=== PATIENT | male | born 1955 | race Caucasian/White ===

== ENCOUNTER → 2017-03-04 | Outpatient (CLI) | payer OTHER ==
--- NOTE | 2017-03-05 07:49 | MAMMOGRAPHY REPORT ---
MALE BILATERAL DIGITAL DIAGNOSTIC MAMMOGRAM WITH CAD AND TARGETED RIGHT ULTRASOUND: 03/04/2017 CLINICAL HISTORY: 61-year-old male presents with a lump in the right breast that he has noticed for a pproximately 2 months. No pain, skin erythema or thickening. No nipple discharge. No family histor y of breast cancer. TECHNIQUE: Bilateral CC and MLO views of the breasts were obtained. Current study was also evaluated with a Computer Aided Detection (CAD) system. COMPARISON: No prior exams were available for comparison. BREAST COMPOSITION: The breast parenchyma is nearly entirely fat. FINDINGS: There is mild gynecomastia bilaterally. A triangle skin palpable marker overlies the 8:00 to 9:00 posterior right breast, denoting the palpable lump pointed out by the patient. In the area of palpable concern, there is a lobulated dense mass measuring 16 x 16 x 16 mm, some of the borders a re indistinct others partially circumscribed. No associated calcification or architectural distortio n. This is indeterminate and further evaluation with ultrasound was performed. Targeted ultrasound was performed in the area of palpable lump pointed out by the patient (8:00 right breast, 4 cm from the nipple). On palpation, there is a firm 2 cm mass, with limited mobility. On ultrasound, there is an angular hypoechoic solid mass measuring 17.9 x 9.4 x 15.5 mm. This correlate s as palpated and with the mammographic finding. Given the solid nature it is indeterminate, warrant ing definitive characterization with an ultrasound-guided core needle biopsy. No overlying skin thic kening is appreciated. IMPRESSION: ACR BI-RADS CATEGORY 4: SUSPICIOUS, TARGETED ULTRASOUND ACR BI-RADS CATEGORY 4: SUSPICIO US The palpable mass in the 8:00 right breast correlates with an indeterminate solid angular hypoechoic 17.9 mm mass on ultrasound, and is also seen mammographically. This is indeterminate and further srikanth racterization with an ultrasound-guided core needle biopsy in the right breast is recommended. These results and recommendations were discussed with the patient at the time of the exam. He tentat ively scheduled the biopsy prior to leaving our department. Approximately 10% of breast cancers are not detected with mammography. A negative mammographic report should not delay biopsy if a clinically suggestive mass is present. Berta Mejias M.D. ay/:03/04/2017 10:39:35 Director Social Service: Jennifer VAUGHN(Jesica)(M), [facility] letter sent: Abnormal 4/5 BI-RADS Code: ACR BI-RADS Category 4: Suspicious Ultrasound BI-RADS: ACR BI-RADS Category 4: Suspici ous
== END | disposition home or self-care (01) ==
LOC: C.MAMM 09:59
PROVIDERS: ATTEND Nurse Practitioner Family
DX: R92.8 Other abnormal and inconclusive findings on diagnostic imaging of breast (principal); N63.10 Unspecified lump in the right breast, unspecified quadrant

== ENCOUNTER → 2017-03-06 | Outpatient (CLI) | payer OTHER ==
--- NOTE | 2017-03-06 16:03 | MAMMOGRAPHY REPORT ---
ULTRASOUND OF RIGHT BREAST: 03/06/2017 CLINICAL HISTORY: The patient presents for biopsy of the right 8:00 breast mass. COMPARISON: Comparison is made to exams dated: 03/04/2017 ultrasound and 03/04/2017 mammogram - [facility]. TECHNIQUE: Real-time targeted ultrasound of the right breast was performed. FINDINGS: The procedure and risks of ultrasound guided biopsy of the right 8:00 breast mass were rev iewed with the patient, and written and verbal consent was obtained. The patient was positioned for the biopsy. When assessing the lump on today's exam, a black punctum was seen on the skin at the sit e of the lump. A small amount of pressure was placed on the lump, and thick yellowwhite discharge w as elicited from the lump. Some of the discharge was placed on slides and some was placed in CytoLyt , and sent to cytology for analysis. Given the black punctum on the skin and given the discharge lizeth t was elicited, the mass likely represents a sebaceous/epidermal inclusion cyst. Given that this lik dottie represents a sebaceous/epidermal inclusion cyst, biopsy was not performed given the risk of causi ng significant inflammation. Repeat targeted ultrasound was performed of the lump, which shows a hypoechoic 1.3 x 0.8 x 1.6 cm sub dermal mass in the right 8 o'clock breast. At least one thin hypoechoic tract is seen extending to t he skin. IMPRESSION: On today's exam, a black punctum was seen on the skin at the site of the lump, and thick yellowwhite discharge was elicited from the lump. A sample of the discharge was sent to cytology for analysis. Given that discharge was elicited from the lump, the mass likely represents a sebaceous/epidermal in clusion cyst. Therefore, biopsy was not performed. The patient will receive pathology results from his referring provider. Vaishnavi Bautista M.D. ah/:03/06/2017 10:03:00 Merchandise Associate: Oneyda JEFFRIES)(M), [facility] BI-RADS Code: n/a
== END | disposition home or self-care (01) ==
LOC: C.MAMM 09:19
PROVIDERS: ATTEND Nurse Practitioner Family
DX: R92.8 Other abnormal and inconclusive findings on diagnostic imaging of breast (principal); N63.10 Unspecified lump in the right breast, unspecified quadrant

== ENCOUNTER → 2017-05-23 | Outpatient (CLI) | payer OTHER ==
[~2017-05-23] MED LIST: OPTIRAY 320 IV PRN
--- NOTE | 2017-05-23 17:31 | DIAGNOSTIC IMAGING REPORT ---
CT ABD/PELVIS IV AND ORAL CONT CLINICAL HISTORY: ELEVATED PANCREATIC ENZYME, EVAL FOR PANCREATITIS COMPARISON STUDY: None. TECHNIQUE: Following the IV administration of 116 mL of Optiray-320, CT scan of the abdomen and pelvis was performed from the lung bases to the proximal femurs. Images are reviewed in the axial, sagittal, and coronal planes. IV contrast was administered without complication. A dose lowering technique was utilized adhering to the principles of ALARA. CT DOSE: 456.79 mGy.cm FINDINGS: Lower chest: There are mild basilar atelectatic changes Liver: There is a nonspecific 21 mm hypodensity within the right hepatic lobe. Multiple additional hepatic hypodensities are visualized. These additional hypodensities however approach water attenuation likely represent cysts. Gallbladder: Unremarkable. Spleen: Normal in size and attenuation. Pancreas: There is a 15 mm cystic lesion within the pancreatic tail. There is a 22 mm hypodensity within the pancreatic head/uncinate process. There is no pancreatic ductal dilatation. There is no intrahepatic biliary ductal dilatation. The pancreatic head lesion could either represent focal pancreatitis or could be neoplastic. An MRI should be considered for further evaluation of the pancreatic lesions as well as the right lobe hepatic lesion. Adrenal glands: Unremarkable. Kidneys: There is symmetric renal cortical enhancement. The kidneys are normal in size without hydronephrosis. Bowel: There are no transition zones indicate bowel obstruction. There is colonic diverticulosis. There are no acute peridiverticular inflammatory changes. The appendix appears normal as visualized. Peritoneum: There is no intraperitoneal free air or abdominal ascites. Vasculature: The abdominal aorta is normal in course and caliber. Adenopathy: None. Pelvic viscera: There is mild prostate enlargement Skeletal structures: No destructive osseous lesions are seen. IMPRESSION: 1. Multiple hepatic hypodensities, many of which likely represent cysts. There is however an indeterminate 21 mm lesion within the right hepatic lobe 2. 15 mm cystic lesion within the pancreatic tail. Indeterminate 22 mm hypodensity with the pancreatic head/uncinate process. 3. An MRI of the liver and pancreas is recommended in follow-up for further evaluation 4. No evidence of bowel obstruction. No evidence of free air 5. Diverticulosis. No evidence of acute diverticulitis. Electronically signed by: Sanjeev Newman M.D. 05/23/2017 5:30 PM Dictated Date/Time: 05/23/2017 5:23 PM
== END | disposition home or self-care (01) ==
LOC: C.CTS 15:06
PROVIDERS: ATTEND Nurse Practitioner Family
DX: R74.8 Abnormal levels of other serum enzymes (principal); K76.9 Liver disease, unspecified; K57.90 Diverticulosis of intestine, part unspecified, without perforation or abscess without bleeding

== ENCOUNTER → 2017-05-27 | Outpatient (CLI) | payer OTHER ==
[~2017-05-27] MED LIST changes: +GADAVIST IV PRN; -OPTIRAY 320 IV PRN
--- NOTE | 2017-05-28 08:47 | DIAGNOSTIC IMAGING REPORT ---
ABDOMEN COMBO HISTORY: 61 years-old Male LIVER LESION,PANCREATIC LESION follow-up study in a patient with cystic lesions of the pancreas and liver. Irregular bowel movements with abdominal bloating. COMPARISON: CT abdomen and pelvis 05/23/2017 TECHNIQUE: Multiplanar multisequence MRI of the abdomen was obtained both with and without the use of 7.7 mL Gadavist FINDINGS: The lung bases appear clear. Imaged heart is also unremarkable. The spleen and adrenal glands appear unremarkable. 5 mm T2 hyperintense ovoid lesion of the inferior pole right kidney is compatible with benign cyst. Mild dextroscoliosis of the mid lumbar spine. No bulky adenopathy or ascites identified. Gallbladder and common bile duct appear to be within normal limits. There are multiple (at least 9) circumscribed T2 hyperintense lesions noted throughout the liver, several of which are too small to characterize, however largest measure up to 1.3 cm within the left hepatic lobe without enhancement compatible with hepatic cyst. Additionally, there is a lobulated 1.9 x 1.4 cm T2 hyperintense and T1 hypointense lesion within the posterior right hepatic lobe nicely seen on image 16 series 6 within segment . This lesion demonstrates mild peripheral nodular discontinuous enhancement with some centripetal filling. 1.3 cm lobular T2 hyperintense lesion within the subcapsular segment more medially, image 20 of series 6 also demonstrates peripheral nodular discontinuous enhancement. No significant drop of signal on the out of phase images to suggest fatty infiltration of the liver. There is an ovoid T2 hyperintense T1 hypointense circumscribed lesion without enhancement involving the pancreatic tail measuring 1.6 x 1.2 cm nicely seen on image 22 series 6. Additionally, there is an ill-defined T1 hypointense lesion of the uncinate process demonstrating intermediate signal on the T2 series measuring up to 2.0 x 2.1 x 1.6 cm nicely seen on image 62 series 1303. This lesion demonstrates minimal peripheral and internal septal enhancement, notably on the portal venous phase without significant arterial enhancement. No associated pancreatic ductal dilation or definite invasion into adjacent structures. No vascular encasement identified. The bones appear unremarkable. No aortic aneurysm or adenopathy. IMPRESSION: 1. 2.1 cm lesion of the uncinate process pancreas demonstrating imaging characteristics very suspicious for adenocarcinoma or less likely neuroendocrine tumor. No pancreatic ductal dilation, vascular encasement or invasion into adjacent structures. Further evaluation with endoscopy and tissue sampling recommended. 2. 1.6 cm circumscribed cystic lesion of the pancreatic tail suggests sidebranch IPMN. 3. Multiple hepatic cysts are noted in addition to two lobulated T2 hyperintense lesions of the posterior right hepatic lobe measuring up to 1.9 cm demonstrating imaging characteristics most suggestive of hepatic hemangiomas. The above report was generated using voice recognition software. It may contain grammatical, syntax or spelling errors. Electronically signed by: Regulo Dai M.D. 05/28/2017 8:59 AM Dictated Date/Time: 05/28/2017 8:02 AM
== END | disposition home or self-care (01) ==
LOC: C.MRI 19:58
PROVIDERS: ATTEND Nurse Practitioner Family
DX: K76.9 Liver disease, unspecified (principal); K86.9 Disease of pancreas, unspecified

== ENCOUNTER → 2017-05-28 | Outpatient (CLI) | payer OTHER ==
[2017-05-28 17:09] LABS: ALBUMIN 4.1 gm/dl (3.4-5.0); ALT/SGPT 17 U/L (12-78); BLOOD UREA NITROGEN 12 mg/dl (7-18); CALCIUM 9.3 mg/dl (8.5-10.1); CARBON DIOXIDE 27 mmol/L (21-32); CREATININE 0.97 mg/dl (0.60-1.40); GLUCOSE 104 mg/dl (70-99); POTASSIUM 4.1 mmol/L (3.5-5.1); SODIUM 138 mmol/L (136-145)
[2017-05-28 17:16] LABS: ALKALINE PHOSPHATASE 89 U/L (45-117); AST/SGOT 15 U/L (15-37); LIPASE 3777 U/L (73-393); TOTAL PROTEIN 7.9 gm/dl (6.4-8.2)
== END | disposition home or self-care (01) ==
LOC: C.LABBC 13:45
PROVIDERS: ATTEND Nurse Practitioner Family
DX: R74.8 Abnormal levels of other serum enzymes (principal); R86.9 Unspecified abnormal finding in specimens from male genital organs; R76.9 Abnormal immunological finding in serum, unspecified

== ENCOUNTER → 2017-06-06 | Outpatient (CLI) | payer OTHER ==
[2017-06-06 17:18] LABS: LIPASE 1903 U/L (73-393)
== END | disposition home or self-care (01) ==
LOC: C.LABBC 14:18
PROVIDERS: ATTEND Physician Assistant
DX: K86.9 Disease of pancreas, unspecified (principal)

== ENCOUNTER 2019-07-06 20:46 | Inpatient (IN) ==
[2019-07-06] MEDS ORDERED: SODIUM CHLORIDE 0.9% 250 ML IV PRN (20:56)
[2019-07-06 21:40] LABS: Hematocrit (blood only) 14.5 % (42-52); Hemoglobin 4.6 g/dL (14.0-18.0); Mean Corpuscular Hgb Conc 31.7 g/dL (32-36); Mean Corpuscular Volume 78.8 fL (80-100); Mean Platelet Volume 9.8 fL (7.4-10.4); Platelet Count 335 K/uL (130-400); RDW Coefficient of Variation 20.5 % (11.5-14.5); Red Blood Count 1.84 M/uL (4.7-6.1); White Blood Count 7.88 K/uL (4.8-10.8)
--- NOTE | 2019-07-06 21:46 | Emergency Department Note ---
Impression & Plan GI bleed, Anemia ED Provider Note NAME: MICKI MORRIS AGE: 63 SEX: M : 1955 ARRIVES VIA: Walk-In INFORMANT: Patient, ED PROVIDER(S): Ho Burt MD Chief Complaint: Fatigue, Dr. referred for lab results HPI: Patient does present with worsening fatigue and weakness. The patient does have a known history of pancreatic cancer. He does see a Dr. Fierro at [facility] in [place]. The patient did her last received chemo 2 weeks ago. The patient did have blood counts obtained today which showed a low hemoglobin. The patient has stated that he has had some darker stool and is currently on Eliquis for known history of blood clots. The patient states his appetite is been okay. No recent travel or sick contacts. The patient's fatigue is worsened over the last week. Rest does improve it somewhat and activity makes it worse. It has been persistent. ROS: See HPI for pertinent positives and negatives. A total of 10 systems were reviewed and otherwise negative. Past medical history: See below Surgical history: See below Social history: See below Physical Exam: GENERAL: Thin and pale in appearance. EYE EXAM: Normal conjunctiva. PERRL, no anisocoria and EOM's grossly intact w/o pain. NECK: Supple, no nuchal rigidity, no adenopathy, non-tender. No signs of meningismus. Chest: Port in right chest. LUNGS: Clear to auscultation. Normal chest wall mechanics. HEART: NSR, no MRG. ABDOMEN: Abdomen soft, non-tender, normo-active bowel sounds, no masses, no rebound or guarding. BACK: No CVA TTP. SKIN: No rashes and no bruising. UPPER EXTREMITIES: Upper extremities are grossly normal. LOWER EXTREMITIES: Grossly normal, no edema. NEURO EXAM: A&O x3, cranial nerves II-XII grossly intact, normal speech, moves all 4 extremities on command w/o issue. Differential diagnoses: Infection, dehydration, metabolic abnormality, hypo/hyperglycemia, electrolyte disturbance, anemia, hypoxia, cardiac sources, intracerebral event, toxicologic, neurologic, as well as other pathologies. Course: Patient was seen in eval at the bedside. A full history and physical exam was performed. Patient was consented for blood. Patient consented. I did speak with Dr. Babcock, [facility] Hospitalist. He will evaluate and treat the patient. EKG: None Imaging Studies: None Cardiac monitoring: An order was placed for continuous cardiac monitoring. The monitor shows a rate of 110 with sinus tachycardia rhythm. MDM: Patient was seen and evaluated the bedside. The patient did present with tari rn for weakness. The patient does have a low hemoglobin. The patient has related this to darker stools and currently is on Eliquis. The patient did have repeat blood work completed which shows a low white blood cell count. Given this concern the patient was consented for blood I did speak the on-call hospitalist agreed to further evaluate treat the patient. Patient was admitted to the medicine service. Rectal exam did show heme positive stool. I did call pharmacy in order to order a PPI bolus and drip. I have personally spent 45 minutes of critical care time in direct management of this patient. This includes bedside care, interpretation of diagnostic studies, and testing, discussion with consultants, patient, and family members, and other require inpatient management activities. This 45 minutes is in excess of all separately billable procedures. Past Med/Surg History Medical History Pancreatic cancer Social History Preferred Language: Romanian marital status: Feels Safe at Home: Yes Smoking Status: Never smoker Allergies Allergies Allergy/AdvReac Type Severity Reaction Status Date / Time No Known Allergies Allergy Mild Unverified 07/06/19 22:11 Home Meds Home Medications Medication Instructions Recorded Confirmed lorazepam [Ativan] 1 mg PO DAILY PRN 12/18/17 07/06/19 [id number] [Zenpep] 2 cap PO TIDM 07/22/18 07/06/19 pantoprazole [Protonix] 40 mg PO BID 07/22/18 07/06/19 apixaban [Eliquis] 5 mg PO BID 07/06/19 07/06/19 Results & Data (ED) Vital Signs Vital Signs - 24 hr 07/06/19 20:48 Temperature 36.9 C Temperature Source Oral Pulse Rate 118 H Respiratory Rate 16 Respiratory Depth Normal Blood Pressure 128/69 Blood Pressure Mean 88 Blood Pressure Position Sitting Pulse Oximetry 98 Oxygen Delivery Method Room Air Sepsis Recent Fever Within 48 Hours No Sepsis New/Unexplained Change in Mental Status No Sepsis Action Taken by Nursing No Action Required Home Medications Current Medication List: was personally reviewed by me Laboratory Data Attestation: I reviewed the patient's lab results. Result diagrams: 07/06/19 21:16 Lab Results 07/06/19 07/06/19 07/06/19 Range/Units 21:16 21:16 21:16 WBC 7.88 (4.8-10.8) K/uL RBC 1.84 L (4.7-6.1) M/uL Hgb 4.6 L* (14.0-18.0) g/dL Hct 14.5 L* (42-52) % MCV 78.8 L (80-100) fL MCH 25.0 (25-34) pg MCHC 31.7 L (32-36) g/dL RDW Std Deviation 57.0 H (36.4-46.3) fL RDW Coeff of Checo 20.5 H (11.5-14.5) % Plt Count 335 (130-400) K/uL MPV 9.8 (7.4-10.4) fL Immature Gran % (Auto) 0.3 % Neut % (Auto) 80.8 % Lymph % (Auto) 9.4 % [place] % (Auto) 8.9 % Eos % (Auto) 0.5 % Baso % (Auto) 0.1 % Immature Gran # (Auto) 0.02 (0.00-0.02) K/uL Neut # (Auto) 6.37 (1.4-6.5) K/uL Lymph # (Auto) 0.74 L (1.2-3.4) K/uL [place] # (Auto) 0.70 H (0.11-0.59) K/uL Eos # (Auto) 0.04 (0-0.5) K/uL Baso # (Auto) 0.01 (0-0.2) K/uL Hypochromasia Present Anisocytosis Present PT 13.2 H (9.0-12.0) Seconds INR 1.3 H (0.9-1.1) APTT 23.6 (21.0-31.0) Seconds PTT Ratio 0.8 Blood Type A Positive Antibody Screen NEGATIVE Crossmatch See Detail Blood Pressure Blood Pressure Findings: Elevated blood pressure Blood Pressure Disposition: further management by hospitalist Discharge Plan Visit Data Chief Complaint: Referred by Doctor Stated Complaint: TESTING ED Provider: Ho Burt Discharge Problem: GI bleed, Anemia Forms Stand Alone Forms: [facility] [employer] Prescriptions Prescriptions: No Action lorazepam [Ativan] 1 mg tablet 1 mg PO DAILY PRN (Reason: Nausea) RF: 0 pantoprazole [Protonix] 40 mg Tablet,Delayed Release (Dr/Ec) 40 mg PO BID RF: 0 Zenpep 25,000-79,000- 105,000 unit capsule,delayed release(DR/EC) 2 cap PO TIDM RF: 0 Eliquis 5 mg tablet 5 mg PO BID RF: 0
[2019-07-06 21:51] LABS: INR 1.3 (0.9-1.1); Partial Thromboplastin Ratio 0.8; Partial Thromboplastin Time 23.6 Seconds (21.0-31.0); Prothrombin Time 13.2 Seconds (9.0-12.0)
[2019-07-06 22:07] LABS: Anisocytosis Present; Basophils # (auto) 0.01 K/uL (0-0.2); Basophils % (auto) 0.1 %; Eosinophils # (auto) 0.04 K/uL (0-0.5); Eosinophils % (auto) 0.5 %; Hypochromasia Present; Immature Granulocytes # (auto) 0.02 K/uL (0.00-0.02); Immature Granulocytes % (auto) 0.3 %; Lymphocytes # (auto) 0.74 K/uL (1.2-3.4); Lymphocytes % (auto) 9.4 %; Monocytes % (auto) 8.9 %; Neutrophils # (auto) 6.37 K/uL (1.4-6.5); Neutrophils % (auto) 80.8 %
--- NOTE | 2019-07-06 22:48 | History & Physical Report ---
Date of Service July 06, 2019 Assessment & Plan (1) Anemia: Pt is a 63yo with a PMHx of pancreatic cancer s/p whipple in Jan 2018 and current chemotherapy last done 2 weeks ago, Hx of blood clots and insomnia/agitation who contacted his oncologist with complaints of fatigue, SOB and dizziness and was found to be anemic requiring transfusion. Anemia -Pt symptomatic with fatigue, SOB, dizziness for the last week -Hgb of 5.4 as outpatient, decreased further to 4.6 in the ED -will be given 1U of pRBCs in ED, another unit ordered for the floor -q8h H and H -CT abd/ pelvis pending to determine whether retroperitoneal bleed -FOBT pending as potential source of bleed -trops pending to determine any end organ ischemia -hold Eliquis (see below) -admit to med/surg with telemetry monitoring Hx of pancreatic cancer -Diagnosed in May 2017 -Had whipple done in Jan 2018, currently undergoing chemotherapy -Pt follows with oncologist from [facility] -continue home Zenpep 2 cap po TID Hx of blood clots -Pt states he had blood clot in his ?aorta and unnamed related artery -Was originally on Xarelto, but subsequently switched to Eliquis around Apr 2019 -As Eliquis likely cause of bleeding and subsequent anemia, HOLD. -continue SCDs for dvt prophylaxis while hospitalized Insomnia/Agitation -continue home ativan 1mg qhs PRN FEN/GI: Regular diet DVT prophylaxis: SCDs. Currently anemic and bleeding. CODE STATUS: Full Dispo: Med/Surg with tele History of Present Illness Primary Care Provider: Caelb Hinds Pt is a 63yo with a PMHx of pancreatic cancer s/p whipple in Jan 2018 and current chemotherapy last done 2 weeks ago, Hx of blood clots and insomnia/agitation who contacted his oncologist with complaints of fatigue, SOB and dizziness and was found to be anemic requiring transfusion. He states he was diagnosed with pancreatic cancer in May of 2017, had a whipple done in Jan 2018. Follows with his oncologist at [facility]. Has also been on Xarelto in the past and currently Eliquis 5mg BID for a Hx of blood clots. States he started having the symptoms of SOB, fatigue and dizziness about a week ago and thought it was related to a COVID infection. However he denies any fevers, chills, night sweats or cough, recent travel or known COVD contacts. He eventually contacted his oncologist who suggested he get blood work done. His Hgb came back at 5 and he subsequently presented to the ED. PMHx: Pancreatic cancer, Hx of blood clots, insomnia/agitation PSH: whipple, hemmorhoidectomy Allergies: NKDA Meds: As below SH: Never smoker, no alcohol use, no medical marijuana or recreational drug use. Lives at home with his , ambulatory at baseline. ED course: 1U pRBCs transfused, IV protonix, fluids Allergies Allergy/AdvReac Type Severity Reaction Status Date / Time No Known Allergies Allergy Mild Unverified 07/06/19 22:11 Home Medications Home Medications Medication Instructions Recorded Confirmed Type lorazepam [Ativan] 1 mg PO DAILY PRN 12/18/17 07/06/19 History Zenpep 2 cap PO TIDM 07/22/18 07/06/19 History pantoprazole [Protonix] 40 mg PO BID 07/22/18 07/06/19 History famotidine 20 mg PO BID #28 tab 07/07/19 Rx Past Med/Surg History Medical History Pancreatic cancer Social History Preferred Language: Dominican Communication Ability: Effective Product Sales Engineer Required: No Beliefs That Will Affect Care: None marital status: Current Living Situation: Spouse Other Information That Helps Us Care for You: No Feels Safe at Home: Yes Safety Concerns: Feels Safe At This Time Smoking Status: Never smoker Hx Alcohol Use: No Hx Substance Use: No Review of Systems Constitutional: + fatigue, + weakness and + insomnia; no fever, no chills and no sweats Eyes: no worsening vision Ear, Nose, Mouth, Throat: + dizziness; no nasal congestion and no sore throat Respiratory: + dyspnea and + dyspnea on exertion; no cough and no chest congestion Cardiovascular: + dyspnea, + dyspnea on exertion and + lightheadedness; no chest pain, no palpitations and no syncope Gastrointestinal: + blood in stools and + melena; no abdominal pain, no nausea, no vomiting, no constipation and no diarrhea/loose stools Genitourinary: no dysuria and no hematuria Musculoskeletal: no body aches Integumentary: no rash Neurologic: + dizziness; no tingling, no numbness and no headache(s) Hematologic / Lymphatic: no easy bruising and no night sweats Physical Exam Physical Exam: General: Alert, orientedx3. Sitting up in bed, thin gentleman Skin: No noted rashes or bruises Psych: Appropriate mood and affect Neuro: No gross deficits HEENT: NC/AT Chest: Nontender to palpation. CV: RRR, Normal s1, s2. Blowing murmur appreciated Resp: Breath sounds clear but decreased bilaterally, no increased effort of breathing. No crackles/rhonchi/rales. Abdomen: Soft, nontender. No guarding. Extremities: No edema in lower extremities bilaterally. Results & Data Results & Data ([facility]) Vital Signs (Past 12 Hours) Vital Signs Temp Pulse Resp BP Pulse Ox 07/06/19 20:48 36.9 C 118 H 16 128/69 98 Code Status & VTE Plan VTE Prophylaxis Plan VTE Prophylaxis will be ordered: Yes Supervising Physician Co-Signing Physician Notes Attending addendum: I have physically seen this patient, have supervised the medical residents activities, and agree with the H&P unless as otherwise noted. Assessment and Plan: Symptomatic anemia- To receive 2 units PRBCs, and then repeat H&H. H&H every 6 hours x3. Hemoccults before follow serially. Check CT abdomen pelvis without contrast to assess for retroperitoneal bleed. Hold Eliquis overnight, to discuss with oncology from [facility] regarding history of thromboses and resumption of Eliquis at earliest convenience. Remainder orders and notations as noted. Resident Activity Tracking Resident Involvement: Resident Care Provided Care Provided: Adult Hospital Medicine
[2019-07-06] MEDS ORDERED: PANTOprazole 80 MG in DEXTROSE 5% 100 ML IV ONE (23:00)
[2019-07-06] MEDS ORDERED: PANTOprazole 40 MG in DEXTROSE 5% 100 ML IV SCH (23:15)
[2019-07-07] MEDS ORDERED: SODIUM CHLORIDE 0.9% 250 ML IV PRN ×3 (00:57→06:37)
[2019-07-07] MEDS ORDERED: LORazepam 1 MG TAB PO PRN (01:00)
[2019-07-07] MEDS: HEPARIN 100 UNIT/ML 5ML FLUSH FLUSH PRN ×2 (06:01→10:28)
[2019-07-07 06:33] LABS: Hematocrit (blood only) 21.3 % (42-52); Hemoglobin 6.9 g/dL (14.0-18.0); Mean Corpuscular Hemoglobin 25.9 pg (25-34); Mean Corpuscular Hgb Conc 32.4 g/dL (32-36); Mean Corpuscular Volume 80.1 fL (80-100); Mean Platelet Volume 10.1 fL (7.4-10.4); Nucleated RBC # (auto) 0.02 K/uL (0-0); Nucleated RBC % (auto) 0.1 %; Platelet Count 377 K/uL (130-400); RDW Coefficient of Variation 18.8 % (11.5-14.5); RDW Standard Deviation 54.3 fL (36.4-46.3); Red Blood Count 2.66 M/uL (4.7-6.1); White Blood Count 11.44 K/uL (4.8-10.8)
[2019-07-07 06:35] LABS: Basophils # (auto) 0.02 K/uL (0-0.2); Basophils % (auto) 0.2 %; Echinocytes 1+; Eosinophils # (auto) 0.04 K/uL (0-0.5); Eosinophils % (auto) 0.3 %; Immature Granulocytes # (auto) 0.06 K/uL (0.00-0.02); Immature Granulocytes % (auto) 0.5 %; Lymphocytes # (auto) 1.13 K/uL (1.2-3.4); Lymphocytes % (auto) 9.9 %; Monocytes # (auto) 1.02 K/uL (0.11-0.59); Monocytes % (auto) 8.9 %; Neutrophils # (auto) 9.17 K/uL (1.4-6.5); Neutrophils % (auto) 80.2 %; Ovalocytes 1+
--- NOTE | 2019-07-07 06:40 | Communication Note ---
Date of Service: July 07, 2019 Was notified of critical Hgb of 6.9 with this morning's labs. Pt transfused 1 more unit of pRBCs. Resident Activity Tracking Resident Involvement: Accounting Generalist Coverage Note Care Provided: Adult Hospital Medicine
[2019-07-07 06:51] LABS: Albumin Level 2.1 gm/dl (3.4-5.0); Calcium 7.7 mg/dl (8.5-10.1); Creatinine Clr Calc Pharmacy 73.2 ml/min; Est GFR (African American) 98.3; Est GFR (Non-African American) 84.9; Potassium 4.3 mmol/L (3.5-5.1)
[2019-07-07 06:52] LABS: Albumin Globulin Ratio 0.5 (0.9-2); Bilirubin,Total 1.2 mg/dl (0.2-1); Globulin 4.3 gm/dl (2.5-4.0); Total Protein 6.4 gm/dl (6.4-8.2)
--- NOTE | 2019-07-07 08:13 | CT Scan Report ---
CT SCAN OF THE ABDOMEN AND PELVIS WITHOUT IV CONTRAST CLINICAL HISTORY: Anemia. Pancreatic cancer. COMPARISON STUDY: Abdominal CT dated 05/23/2017. TECHNIQUE: CT scan of the abdomen and pelvis is performed from the lung bases to the proximal femora. Images are reviewed in the axial, sagittal, and coronal planes. IV contrast was not administered for this examination as per the referring clinician. Note that the examination was performed in signific antly suboptimal fashion without oral and IV contrast. A dose lowering technique was utilized adherin g to the principles of ALARA. CT DOSE: 287.21 mGy.cm FINDINGS: Lung bases: The heart is normal in size and without pericardial effusion. There is mixed attenuation of the cardiac blood pool as compared to the myocardium suggesting anemia. There is trace right pleur al effusion. Scarring/atelectasis is noted at both lung bases. No airspace consolidation is seen typi lanie for pneumonia. Liver: The unenhanced liver is normal in size and contour. The liver is heterogeneous and attenuation . The intrahepatic bile ducts are not well evaluated. Periportal edema is suggested. Small hepatic cy sts measure up to 1.3 cm. Additional subcentimeter cortical hypodensities may also represent cysts bu t are too small for definitive characterization. Assessment for hepatic lesions is significantly subo ptimal without IV contrast. Gallbladder: The gallbladder is presumed surgically absent. The gallbladder fossa is not well assesse d due to ascites and lack of IV contrast. Spleen: Normal in size and attenuation. Pancreas: The pancreatic head is surgically absent consistent with a history of Whipple procedure. Th e pancreatic tail is atrophic with numerous parenchymal calcifications. The duct is normal in caliber. Adrenal glands: Unremarkable. Kidneys: The unenhanced kidneys are normal in size and without hydronephrosis. There are no renal lanie culi identified. There is no evidence of contour deforming renal mass lesion. Abdominal vasculature: The abdominal aorta is normal in course and caliber noting moderate atheroscle rotic calcification. Bowel: There has been gastroduodenal resection with gastrojejunostomy consistent with a history of Wh ipple procedure. No bowel obstruction is seen. There is colonic fecal retention. The appendix is nor mal as imaged. Peritoneum/retroperitoneum: There is a small volume of abdominopelvic ascites. No intraperitoneal ronda e air is seen. There is no evidence of intraperitoneal or retroperitoneal hemorrhage. Mesenteric nicolás a is noted. Lymphadenopathy: None. Pelvic viscera: The prostate gland is enlarged and heterogeneous. The bladder is decompressed. The bl adder wall is thickened and trabeculated indicating chronic outlet obstruction Skeletal structures: The skeletal structures are osteopenic. There is moderate lumbosacral spondylosi s. No lytic or blastic lesions are seen. IMPRESSION: 1. Suboptimal examination without oral and IV contrast. 2. There is no evidence of intraperitoneal or retroperitoneal hemorrhage. 3. Postoperative change is consistent with a history of Whipple procedure. 4. There is a small volume of abdominopelvic ascites. 5. Additional findings as above. ACT 112: Negative or not required by law. Electronically signed by: Mikhail Menendez M.D. 07/07/2019 8:11 AM
[2019-07-07] MEDS: PANCREAZE (LIPASE 16,800U) CAP PO SCH ×2 (08:32→12:14)
[2019-07-07] MEDS ORDERED: PANTOprazole 40 MG in SYRINGE 0 ML IV SCH (09:00)
[2019-07-07 12:31] LABS: Hematocrit (blood only) 21.5 % (42-52); Hemoglobin 7.1 g/dL (14.0-18.0)
--- NOTE | 2019-07-07 16:44 | Discharge Summary ---
Date of Service July 07, 2019 Admission HPI Per Admitting Provider Pt is a 63yo with a PMHx of pancreatic cancer s/p whipple in Jan 2018 and current chemotherapy last done 2 weeks ago, Hx of blood clots and insomnia/agitation who contacted his oncologist with complaints of fatigue, SOB and dizziness and was found to be anemic requiring transfusion. He states he was diagnosed with pancreatic cancer in May of 2017, had a whipple done in Jan 2018. Follows with his oncologist at [facility]. Has also been on Xarelto in the past and currently Eliquis 5mg BID for a Hx of blood clots. States he started having the symptoms of SOB, fatigue and dizziness about a week ago and thought it was related to a COVID infection. However he denies any fevers, chills, night sweats or cough, recent travel or known COVD contacts. He eventually contacted his oncologist who suggested he get blood work done. His Hgb came back at 5 and he subsequently presented to the ED. PMHx: Pancreatic cancer, Hx of blood clots, insomnia/agitation PSH: whipple, hemmorhoidectomy Allergies: NKDA Meds: As below SH: Never smoker, no alcohol use, no medical marijuana or recreational drug use. Lives at home with his , ambulatory at baseline. ED course: 1U pRBCs transfused, IV protonix, fluids Principal Diagnosis anemia, presumed GI bleeding Discharge Exam gen [facility] at [facility] breathing unlabored no accessory muscles good effort skin no rashes no pallor or icterus neuro no focal deficits Discharge Data Allergies Allergy/AdvReac Type Severity Reaction Status Date / Time No Known Allergies Allergy Mild Unverified 07/06/19 22:11 Consultations 07/06/19 21:55 ED Decision to Admit Stat Ordered Studies 07/07/19 00:26 CT abd pelvis wo con Urgent Hospital Course (1) Anemia: presented weak - found to be profoundly anemic w Hgb bottoming at 4.6. Stools heme (+) but no overt bleeding. hemodynamically stable throughout. suspected slow gi bleeding accentuated by eliquis transfused 3 units for subacute blood loss anemia - Hgb up to 7.1 and pt feeling better discussed options of inpt GI w/u (w presumed EGD looking for UGI ulcer/anastomot ic ulcer) vs empiric treatment and then f/u w GI in [facility] - he much prefers empiric treatment and f/u w GI in [facility] - understanding the risks and complexities of this playing out in current climate with [id number]. hold maddisonquis for now - he notes he was talking w his heme/onc who suggested the same - in discussions w pt it sounds that clots were incidentally found on scanning, never symptomatic clotting. he will discuss further w oncology about ?resume vs ongoing hold - but for now w subacute blood loss anemia it makes the most sense to at least hold for now, follow Hgb, then possibly resume in 1-2wks (preferably after EGD at least, but if resuming empirically would follow Hgb even more closely after) stable for home increase acid suppression for 2wks w H2 on top of current PPI. Total Time Total Time Spent Total Time Spent (In Minutes): >30 Discharge Plan Discharge Items Patient Disposition: Home - Self-Care Reason For Visit: ANEMIA Discharge Diagnosis: anemia Activity: Resume your previous activity Non-emergency contact: Primary Care Provider, Surgeon and [employer] Call non-emergency contact if: you have any medication questions and your symptoms worsen Follow-up/Referrals: Caleb Hinds [Primary Care Provider] - Diet: Regular Addtl Attending Provider Instructions: anemia -as we discussed, when you arrived your hemoglobin was extremely low at 4.6 (normal is about 12-16) - and being so low on blood counts is an easy explanation for what you were feeling -fortunately getting blood in you has helped with your symptoms tremendously - and now your counts are up to 7.1 (most people with a normal cardiopulmonary system - like you - don't really feel much symptoms until they get into the 6's or lower - so this fits well) -given how low your counts were, but how normal your pulse and blood pressure were, this had to be a slow loss of blood to give your body time to compensate - likely at least over the last month, if not longer -since the CT did not show any collections of blood, and your stool tested positive for blood, most likely there was a slow ooze of blood into your GI tract -- with a connection where they brought things together from the whipple procedure being a common area that could get involved. as we discussed, blood thinners don't generally cause bleeding in a "vacuum" as much as they "turn up the faucet" on bleeding that is already occurring - ie without the eliquis there still may have been a little ulcer causing bleeding, but it could have been so slow that you would not have noticed or it might never have amounted to anything that was too much for your body to keep up with. being on the eliquis, then you had bleeding increased some, leading to the current situation -it is safe to get home - we'd recommend having blood counts (Hemoglobin) checked about once a week, or as needed if you feel symptoms like you felt, for the foreseeable future -for now, hold off on the eliquis (and likewise, obviously avoid any aspirin, ibuprofen, other blood thinners or anti-inflammatories) but continue to follow with your oncologist in this respect - frequently when the source of bleeding has stopped and healed over, it can be safe to cautiously resume a blood thinner (although also as we discussed, since the clots were found incidentally rather than because of causing symptoms, it might be just as reasonable to indefinitely hold off on blood thinners) - continue to discuss this with your oncologist -for now, take pepcid (famotidine) 20mg twice a day in addition to your protonix - for about the next 14 days -we'd want your manager of case to look over your situation - commonly people will at least have an upper endoscopy to evaluate for little ulcers (in your situation the purpose would be to ensure adequate healing and determine if it might be safe to resume a blood thinner if needed), and your manager of case can also give consideration to if a colonoscopy or small bowel study -pay attention to your symptoms - if you get recurrence of what you've been feeling, then it would be time to get blood counts checked again. likewise, pay attention to your stools - since blood acts as a laxative, if the bleeding were to ever increase, you would probably see it as dark, tarry stools or possibly even bright red blood. Pending Studies at Discharge: No Stand-Alone Forms: My [employer], Smoking Cessation Medications and DC Order Prescriptions: New famotidine 20 mg tablet 20 mg PO BID Qty: 28 RF: 0 Continued lorazepam [Ativan] 1 mg tablet 1 mg PO DAILY PRN (Reason: Nausea) RF: 0 pantoprazole [Protonix] 40 mg Tablet,Delayed Release (Dr/Ec) 40 mg PO BID RF: 0 Zenpep 25,000-79,000- 105,000 unit capsule,delayed release(DR/EC) 2 cap PO TIDM RF: 0 Discontinued Eliquis 5 mg tablet 5 mg PO BID RF: 0 Discharge Orders: Discharge Order (Routine); Ordered 07/07/19 Ordered By: Francisco Javier Carter Admission Data Admit Date/Time: 07/06/19 22:31 Attending Provider: Francisco Javier Carter Admit Provider: Nena Boswell Primary Care Provider: Caleb Hinds Other Providers: Bora Roach Other Interventions: Discharge Summary Assessment (RN) Last Done: 07/07/19 13:30 DC Date/Time DO NOT enter until pt leaves facility: 07/07/19 14:40 Coding Level of Care Code D/C Day Management >30 mins Diagnoses Anemia D64.9
--- NOTE | 2019-07-09 02:46 | Billing Data ---
Date of Service July 09, 2019 Coding Level of Care Code 64549 Initial Inpt Care Lvl 3
== END 2019-07-07 14:40 | disposition home or self-care (01) | DRG 378 ==
LOC: ED 20:46 → SUATTDRO 22:31 → 2W 23:36